=== PATIENT | female | born 1995 | race Caucasian/White ===

== ENCOUNTER 2017-01-17 23:52 | Emergency (ER) | payer BC, OTHER ==
[~2017-01-17] VITALS: Ht 170.2 cm; Wt 64.8 kg
[~2017-01-17 23:52] MED LIST: NAPR500 PO
[2017-01-17 23:58] VITALS: BP 119/82; PULSE 89; RESP 16; TEMP 97.4; O2SAT 100
[2017-01-18] MEDS ORDERED: LIDOCAINE 1%/EPINEPHrine 1:100,000 SOLN 20 ML VIAL INFIL ONE (01:00)
[2017-01-18] MEDS ORDERED: TETANUS/DIPHTHERIA TOXOID ADULT 0.5 ML VIAL IM ONE (01:00)
--- NOTE | 2017-01-18 01:21 | PD ---
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 Her last tetanus shot was 12 years ago. She states she has a fear of needles. PFSH Past Medical History Immunizations Current: Yes Migraines: Yes Social History Alcohol Use: Yes (OCC) Tobacco Use: No Substance Use: No Allergies-Medications (Allergen,Severity, Reaction): Coded Allergies: No Known Allergies (Verified , 12/21/13) Reported Meds & Prescriptions Reported Meds & Active Scripts Active Naprosyn (Naproxen) 500 Mg Tab 500 Mg PO Q12 Review of Systems Except as stated in HPI: all other systems reviewed are Neg Physical Exam Narrative GENERAL: Well-nourished, well-developed patient in slight apparent distress with her physician and/or right hand's dock at the base of the thumb into the skin. Her vital signs are normal. SKIN: Focused skin assessment warm/dry. There is a large fish hook in the right hand on the volar palm at the base of the thumb. The arianna is completely immersed and the shaft is penetrated one half centimeter into the skin. HEAD: Normocephalic. EYES: No scleral icterus. No injection or drainage. NECK: Supple, trachea midline. No JVD or lymphadenopathy. CARDIOVASCULAR: Regular rate and rhythm without murmurs, gallops, or rubs. RESPIRATORY: Breath sounds equal bilaterally. No accessory muscle use. GASTROINTESTINAL: Abdomen soft, non-tender, nondistended. MUSCULOSKELETAL: No cyanosis, or edema. BACK: Nontender without obvious deformity. No CVA tenderness. Data Data Last Documented VS Vital Signs Date Time Temp Pulse Resp B/P Pulse Ox O2 Delivery O2 Flow Rate FiO2 01/17/17 23:58 97.4 89 16 119/82 100 Orders Lidocai-Epi 1%-1:100,000 Inj (Xylocaine- (01/18/17 01:00) Tetanus/Diphtheria Tox Adult (Tetanus/Di (01/18/17 01:00) MDM Medical Decision Making Medical Screen Exam Complete: Yes Emergency Medical Condition: Yes Medical Record Reviewed: Yes Differential Diagnosis [place] in hand, tendon, nerve, vessel damage Narrative Course The patient has a fishhook foreign body in her hand. There is no evidence of any tendon, nerve or vessel damage. Procedures Procedure Narrative A small amount of lidocaine with epinephrine was used to numb up the area and a tiny incision at the bar was made with a #11 blade. The fishhook was easily removed. The patient tolerated the procedure fairly well. Diagnosis Primary Impression: [place] injury to finger Additional Impression: History of retained foreign body fully removed Additional Instructions: Keep the wound clean, dry and bandaged and do not wash dishes for about one week. If there any problems, please return to emergency department. Med/Other Pt SpecificInfo: No Change to Meds Disposition: 01 DISCHARGE HOME Condition: Stable Luisito Mcknight MD January 18, 2017 01:21
== END 2017-01-18 01:54 | disposition home or self-care (01) ==
LOC: PHED 23:52
DX: S60.351A Superficial foreign body of right thumb, initial encounter (principal); W22.8XXA Striking against or struck by other objects, initial encounter; Z23 Encounter for immunization
CPT/HCPCS: 10120; 90471; 90714

== ENCOUNTER 2018-03-03 20:40 | Emergency (ER) | payer OTHER ==
[~2018-03-03] VITALS: Ht 170.2 cm; Wt 63.8 kg
[2018-03-03 20:44] VITALS: BP 111/70; PULSE 103; RESP 18; TEMP 97.9; O2SAT 100
[2018-03-03] MEDS ORDERED: ONDANSETRON ODT 4 MG TAB PO ONE (21:15)
[2018-03-03] MEDS ORDERED: KETOROLAC TROMETHAMINE 30 MG/ML (IVP) VIAL IV PUSH ONE (21:15)
[2018-03-03] MEDS ORDERED: SODIUM CHLOR 0.9% 1000 ML INJ 1,000 ML IV SCH (21:15)
[2018-03-03] MEDS ORDERED: MORPHINE SULFATE 4 MG/ML INJ IV PUSH ONE (21:15)
--- NOTE | 2018-03-03 21:15 | PD ---
HPI Chief Complaint: Abdominal Pain Time Seen by Provider: 20:59 Travel History International Travel<30 days: No Contact w/Intl Traveler<30days: No Traveled to known affect area: No History of Present Illness HPI 22-year-old female complains of abdominal pain. Patient states the pain started yesterday. Patient states the pain is cramping pain and sharp pain constant pain localized to lower abdomen. Patient denies any pain radiation. Patient denies any nausea vomiting diarrhea. Patient states that she started having dysuria this evening. Patient states that she started her menstruation period yesterday. Patient has history of an cyst in the past. Patient also has history of factor V deficiency. On a scale from 1-10 the pain is an 8. Patient denies any fever chills. Patient denies any back pain. PFSH Past Medical History Diminished Hearing: No Reproductive: Yes (OVARIAN CYST) Immunizations Current: Yes Migraines: Yes Influenza Vaccination: No ?: Not LMP: 03/02/18 : 0 Ovarian Cysts: Yes Past Surgical History Oral Surgery: Yes (WISDOM TEETH EXTRACTED) Social History Alcohol Use: Yes (OCC) Tobacco Use: No Substance Use: No Allergies-Medications (Allergen,Severity, Reaction): Coded Allergies: No Known Allergies (Verified Allergy, Unknown, 03/03/18) Reported Meds & Prescriptions Reported Meds & Active Scripts Active No Active Prescriptions or Reported Medications Review of Systems General / Constitutional: No: Fever Eyes: No: Visual changes HENT: No: Headaches Cardiovascular: No: Chest Pain or Discomfort Respiratory: No: Shortness of Breath Gastrointestinal: Positive: Abdominal Pain Genitourinary: No: Dysuria Musculoskeletal: No: Pain Skin: No Rash Neurologic: No: Weakness Psychiatric: No: Depression Endocrine: No: Polydipsia Hematologic/Lymphatic: No: Easy Bruising Physical Exam Narrative GENERAL: Well-nourished, well-developed patient. SKIN: Focused skin assessment warm/dry. HEAD: Normocephalic. EYES: No scleral icterus. No injection or drainage. NECK: Supple, trachea midline. No JVD or lymphadenopathy. CARDIOVASCULAR: Regular rate and rhythm without murmurs, gallops, or rubs. RESPIRATORY: Breath sounds equal bilaterally. No accessory muscle use. GASTROINTESTINAL: Abdomen soft, nondistended. Patient has moderate tenderness on palpation lower abdomen. No rebound tenderness. No mass. MUSCULOSKELETAL: No cyanosis, or edema. BACK: Nontender without obvious deformity. No CVA tenderness. Data Data Last Documented VS Vital Signs Date Time Temp Pulse Resp B/P (MAP) Pulse Ox O2 Delivery O2 Flow Rate FiO2 03/03/18 22:37 77 16 108/61 (77) 98 Room Air 03/03/18 20:44 97.9 Orders Orders Complete Blood Count With Diff (03/03/18 21:04) Comprehensive Metabolic Panel (03/03/18 21:04) Lipase (03/03/18 21:04) Urinalysis - C+S If Indicated (03/03/18 21:04) Ct Abd/Pel W Iv Contrast(Rout) (03/03/18 21:04) Iv Access Insert/Monitor (03/03/18 21:04) Ecg Monitoring (03/03/18 21:04) Oximetry (03/03/18 21:04) Ed Urine Pregnancytest Poc (03/03/18 21:04) Sodium Chlor 0.9% 1000 Ml Inj (Ns 1000 M (03/03/18 21:15) Ketorolac Inj (Toradol Inj) (03/03/18 21:15) Ondansetron Odt (Zofran Odt) (03/03/18 21:15) Morphine Inj (Morphine Inj) (03/03/18 21:30) Iohexol 350 Inj (Omnipaque 350 Inj) (03/03/18 21:58) Ed Discharge Order (03/03/18 22:57) Labs Laboratory Tests Test 03/03/18 21:05 03/03/18 21:30 White Blood Count 5.6 TH/MM3 Red Blood Count 4.34 MIL/MM3 Hemoglobin 12.3 GM/DL Hematocrit 37.4 % Mean Corpuscular Volume 86.3 FL Mean Corpuscular Hemoglobin 28.5 PG Mean Corpuscular Hemoglobin Concent 33.0 % Red Cell Distribution Width 12.4 % Platelet Count 230 TH/MM3 Mean Platelet Volume 7.5 FL Neutrophils (%) (Auto) 66.1 % Lymphocytes (%) (Auto) 26.5 % Monocytes (%) (Auto) 6.5 % Eosinophils (%) (Auto) 0.5 % Basophils (%) (Auto) 0.4 % Neutrophils # (Auto) 3.7 TH/MM3 Lymphocytes # (Auto) 1.5 TH/MM3 Monocytes # (Auto) 0.4 TH/MM3 Eosinophils # (Auto) 0.0 TH/MM3 Basophils # (Auto) 0.0 TH/MM3 CBC Comment DIFF FINAL Differential Comment Blood Urea Nitrogen 12 MG/DL Creatinine 0.88 MG/DL Random Glucose 98 MG/DL Total Protein 6.8 GM/DL Albumin 3.5 GM/DL Calcium Level 8.8 MG/DL Alkaline Phosphatase 68 U/L Aspartate Amino Transf (AST/SGOT) 11 U/L Alanine Aminotransferase (ALT/SGPT) 18 U/L Total Bilirubin 1.0 MG/DL Sodium Level 140 MEQ/L Potassium Level 3.6 MEQ/L Chloride Level 105 MEQ/L Carbon Dioxide Level 25.6 MEQ/L Anion Gap 9 MEQ/L Estimat Glomerular Filtration Rate 81 ML/MIN Lipase 103 U/L Urine Color YELLOW Urine Turbidity CLEAR Urine pH 7.0 Urine Specific [place] LESS/EQUAL 1.005 Urine Protein NEG mg/dL Urine Glucose (UA) NEG mg/dL Urine Ketones NEG mg/dL Urine Occult Blood NEG Urine Nitrite NEG Urine Bilirubin NEG Urine Urobilinogen 0.2 MG/DL Urine Leukocyte Esterase NEG Urine RBC 0-2 /hpf Urine WBC 0-2 /hpf Urine Squamous Epithelial Cells 0-5 /hpf Urine Bacteria NONE /hpf Microscopic Urinalysis Comment CULT NOT INDICATED MDM Medical Decision Making Medical Screen Exam Complete: Yes Emergency Medical Condition: Yes Interpretation(s) 22:06 PM. CBC within normal limits. CMP within normal limits. UA is negative. Last Impressions Abdomen/Pelvis CT 03/03/18 [id number] Signed Impressions: CONCLUSION: 1. No definite abnormality is identified to explain the patient's abdominal pa in. Please note that the appendix is not visualized. 2. There is a small volume of nonspecific free fluid within the pelvis. Differential Diagnosis Differential diagnosis including dysmenorrhea, UTI, pyelonephritis, nephrolithiasis, cervicitis, PID. Narrative Course 22-year-old female complains of low abdominal pain. History of ovarian cyst. Patient on her menstruation period. Diagnosis Primary Impression: Dysmenorrhea Patient Instructions: General Instructions Additional Instructions: Take medication as needed for pain. Follow-up with mcat tutor. Return if worse. Med/Other Pt SpecificInfo: Prescription(s) given Scripts Tramadol (Ultram) 50 Mg Tab 50 MG PO Q6H Y for PAIN, #12 TAB 0 Refills Prov: Clifford Stone MD 03/03/18 Meloxicam (Mobic) 15 Mg Tab 15 MG PO DAILY for Pain, #30 TAB 0 Refills Prov: Clifford Stone MD 03/03/18 Disposition: 01 DISCHARGE HOME Condition: Stable Clifford Stone MD Mar 03, 2018 21:15
[2018-03-03 21:27] LABS: AUTOMATED NEUTROPHIL # 3.7 TH/MM3 (1.8-7.7); BASOPHIL % 0.4 % (0.0-2.0); EOSINOPHIL % 0.5 % (0.0-4.0); HEMATOCRIT 37.4 % (35.0-46.0); HEMOGLOBIN 12.3 GM/DL (11.6-15.3); LYMPH % 26.5 % (9.0-44.0); LYMPHOCYTE # 1.5 TH/MM3 (1.0-4.8); MEAN CELL VOLUME 86.3 FL (80.0-100.0); MEAN CORPUSCULAR HEMOGLOBIN 28.5 PG (27.0-34.0); MEAN PLATELET VOLUME 7.5 FL (7.0-11.0); MONO % 6.5 % (0.0-8.0); MONOCYTE # 0.4 TH/MM3 (0-0.9); NEUT % 66.1 % (16.0-70.0); PLATELET COUNT 230 TH/MM3 (150-450); RED BLOOD COUNT 4.34 MIL/MM3 (4.00-5.30); RED CELL DISTRIBUTION WIDTH 12.4 % (11.6-17.2); WHITE BLOOD COUNT 5.6 TH/MM3 (4.0-11.0)
[2018-03-03] MEDS ORDERED: MORPHINE SULFATE 2 MG/ML SYRINGE IV PUSH ONE (21:30)
[2018-03-03 21:31] LABS: CHLORIDE 105 MEQ/L (98-107); SODIUM (NA) 140 MEQ/L (136-145)
[2018-03-03 21:35] LABS: ALBUMIN 3.5 GM/DL (3.4-5.0); BICARBONATE 25.6 MEQ/L (21.0-32.0); CALCIUM 8.8 MG/DL (8.5-10.1); GLUCOSE,RANDOM 98 MG/DL (74-106)
[2018-03-03 21:36] LABS: BLOOD UREA NITROGEN 12 MG/DL (7-18)
[2018-03-03 21:38] LABS: ALT (GPT) 18 U/L (10-53); AST (GOT) 11 U/L (15-37); CREATININE 0.88 MG/DL (0.50-1.00); GLOMERULAR FILTRATION RATE 81 ML/MIN (>89)
[2018-03-03 21:38] LABS: BILIRUBIN, URINE NEG (NEG); BLOOD, URINE NEG (NEG); GLUCOSE,URINE NEG (NEG); KETONE, URINE NEG (NEG); NITRITE,URINE NEG (NEG); URINE COLOR YELLOW (YELLW/STRAW); URINE LEUKOCYTE ESTERASE NEG (NEG)
[2018-03-03 21:40] LABS: TOTAL PROTEIN 6.8 GM/DL (6.4-8.2)
[2018-03-03 21:41] LABS: ALKALINE PHOSPHATASE 68 U/L (45-117)
[2018-03-03 21:45] LABS: RBC, URINE 0-2 /hpf (0-3); SQUAMOUS EPITHELIAL CELL URINE 0-5 /hpf (0-5); WBC, URINE 0-2 /hpf (0-5)
[2018-03-03] MEDS ORDERED: IOHEXOL 350 MG/ML 10 ML VIAL (for RAD DIAG) IVCONTRAST ONE (21:58)
[2018-03-03 22:37] VITALS: BP 108/61; PULSE 77; RESP 16; O2SAT 98
--- NOTE | 2018-03-03 22:51 | RADRPT ---
EXAM DATE: 03/03/2018 9:57 PM EDT AGE/SEX: 22 years / Female INDICATIONS: Abdominal pain. CLINICAL DATA: This is the patient's initial encounter. Patient reports that signs and symptoms have been present for 1 day and indicates a pain score of 8/10. MEDICAL/SURGICAL HISTORY: None. None. ORAL CONTRAST: No oral contrast ingested. RADIATION DOSE: 6.06 CTDI (mGy) COMPARISON: No prior exams available for comparison. TECHNIQUE: Multiple contiguous axial images were obtained through the abdomen and pelvis following b olus infusion of 75 ml Omnipaque 350 (iohexol) nonionic water-soluble contrast as a single exam dos e. No oral contrast ingested. Using automated exposure control and adjustment of the mA and/or kV ac cording to patient size, radiation dose was kept as low as reasonably achievable to obtain optimal di agnostic quality images. DICOM format image data is available electronically for review and comparis on. FINDINGS: Lower chest: No acute abnormality is identified. Hepatobiliary: No focal liver lesion is identified. Hepatic vasculature demonstrates no abnormality. No calcified gallstones are present. Kidneys: No hydronephrosis, stone, or mass. Adrenal Glands: Within normal limits. Spleen: Within normal limits. Pancreas: Within normal limits. Vascular: The aorta is nonaneurysmal. Bowel/Mesentery: Stomach and small bowel demonstrate no abnormality. Terminal ileum is normal. The ap pendix is not visualized. Colon demonstrates no acute finding. There is a small volume of free fluid within the pelvis. Abdominal Wall: No hernia is visualized. Retroperitoneum: No lymphadenopathy. Bladder: No wall thickening or mass. Reproductive: No acute abnormality is identified. Tampon is present within the vagina. Inguinal: No lymphadenopathy or hernia. Musculoskeletal: No acute osseous abnormality is identified. CONCLUSION: 1. No definite abnormality is identified to explain the patient's abdominal pain. Please note that t he appendix is not visualized. 2. There is a small volume of nonspecific free fluid within the pelvis. Electronically signed by: Jin Call MD 03/03/2018 10:50 PM EDT
[2018-03-03] MEDS ORDERED: MOBI15TA PO (22:59)
[2018-03-03] MEDS ORDERED: TRAM50 PO (22:59)
== END 2018-03-03 23:08 | disposition home or self-care (01) ==
LOC: PHED 20:40
DX: N94.6 Dysmenorrhea, unspecified (principal); R30.0 Dysuria; D68.2 Hereditary deficiency of other clotting factors
CPT/HCPCS: 74177; 80053; 81001; 83690; 84703; 85025; 96361; 96374; 96375; 99285; J1885; J2270; J7030; Q9967